=== PATIENT | male | born 1960 | race Caucasian/White ===

== ENCOUNTER 2019-05-15 08:45 | Day surgery (SDC) | payer OTHER ==
[~2019-05-15] VITALS: Ht 165.1 cm; Wt 87.1 kg
[2019-05-15 10:30] VITALS: Ht 165.1 cm; Wt 87.1 kg
[2019-05-15] MEDS ORDERED: hydrochlorothiazide (10:42)
[2019-05-15] MEDS ORDERED: diclofenac (10:42)
[2019-05-15] MEDS ORDERED: cyclobenzaprine (10:42)
[2019-05-15] MEDS ORDERED: pantoprazole (10:42)
[2019-05-15] MEDS ORDERED: tamulosin (10:42)
[2019-05-15 11:02] VITALS: BP 132/76; PULSE 57; RESP 16
[2019-05-15] MEDS ORDERED: MIDAZOLAM 1 MG/ML 2 ML INJ ONE ×2 (11:38)
[2019-05-15] MEDS ORDERED: FENTAnyl 50 MCG/ML VIAL ONE (11:38)
[2019-05-15 11:55] VITALS: BP 113/71; PULSE 52
== END 2019-05-15 17:45 | disposition home or self-care (01) ==
LOC: GIL 08:45
PROVIDERS: ATTEND Internal Medicine Gastroenterology
DX: Z12.11 Encounter for screening for malignant neoplasm of colon (principal); K64.4 Residual hemorrhoidal skin tags; K57.30 Diverticulosis of large intestine without perforation or abscess without bleeding
CPT/HCPCS: 45378; J2250; J3010